=== PATIENT | female | born 1950 | race Caucasian/White ===

== ENCOUNTER 2018-05-25 20:02 | Emergency (ER) | payer OTHER, SELFPAY ==
--- NOTE | 2018-05-25 20:04 | ED_ITS ---
HPI - Extremity Injury (Upper) <CATRINA Fried - Last Filed: 05/25/18 22:17> General Chief Complaint: Extremity Injury, Upper Stated Complaint: RIGHT HAND FRACTURED OR SPRAIN Time Seen by Provider: 05/25/18 20:04 History of Present Illness HPI narrative: 67-year-old female here for complaint of pain into her right wrist. Patient states that she stumbled earlier today causing her to fall backwards on outstretched hand. She has pain into the radial aspect of the right wrist with some swelling and bruising. She denies any head injury she denies any loss of conscious. She denies any other injuries. She is ambulatory to the emergency room. Incident happened this afternoon. Patient also states she had some dysuria earlier today however that has resolved. She denies any flank pains no fevers no chills no abdominal pain. Related Data Allergies Allergy/AdvReac Type Severity Reaction Status Date / Time Penicillins Allergy Intermediate Rash Verified 05/25/18 20:39 codeine AdvReac Gastrointestinal Verified 05/25/18 20:39 Upset Sulfa (Sulfonamide AdvReac flush Verified 05/25/18 20:39 Antibiotics) Review of Systems <CATRINA Fried - Last Filed: 05/25/18 22:17> Constitutional Denies chills, Denies fever(s), Denies lethargy and Denies weakness Eyes Denies change in vision, Denies eye discharge, Denies irritation and Denies loss of vision ENT Ears, Nose, Mouth, and Throat: Denies change in voice, Denies neck pain and Denies sore throat Cardiovascular Denies chest pain, Denies irregular heart rhythm, Denies lightheadedness, Denies palpitations, Denies dyspnea, Denies dyspnea on exertion and Denies orthopnea Respiratory Denies cough, Denies dyspnea, Denies dyspnea on exertion and Denies wheezing Gastrointestinal Gastrointestinal: Denies abdominal pain, Denies change in bowel habits, Denies diarrhea, Denies nausea and Denies vomiting Genitourinary Denies hematuria, Reports dysuria, Denies flank pain, Denies urinary incontinence and Denies urinary urgency Musculoskeletal Denies neck pain Comments: Pain to right wrist Integumentary/Breasts Denies pruritus, Denies erythema, Denies rash and Denies wounds Neurologic Denies confusion, Denies loss of vision and Denies weakness Psychiatric Denies anxiety, Denies confusion, Denies depression, Denies homicidal ideation and Denies suicidal ideation Endocrine Denies palpitations Allergic/Immunologic Denies wheezing Exam <CATRINA Fried - Last Filed: 05/25/18 22:17> Initial Vital Signs Initial Vital Signs: Vital Signs Temperature 98.4 F 05/25/18 20:10 Pulse Rate 114 H 05/25/18 20:10 Respiratory Rate 18 05/25/18 20:10 Blood Pressure 172/78 H 05/25/18 20:10 Pulse Oximetry 95 05/25/18 20:10 Const General: cooperative and well developed Nutritional Appearance: well nourished Orientation: alert, awake, oriented x3 and not confused HENMT Mouth: oral mucosae normal and moist mucous membranes Throat: posterior oropharynx normal Eyes Conjunctivae: conjunctivae normal Sclera: sclerae normal Pupils: PERRL EOM: EOM intact bilaterally Chest Chest: normal inspection of the chest Resp Effort & Inspection: normal respiratory effort, able to speak in complete sentences, no respiratory distress and no use of accessory muscles Auscultation: clear to auscultation bilaterally, no rales, no rhonchi and no wheezes Skin General: no rashes or lesions noted, No jaundice and No petechiae Extrem Other: Swelling and ecchymosis to the right wrist over the radial aspect. No other deformities. Distal sensation is intact distal range of motion is intact. Distal cap refill less than 2 sec. <Morgan Donahue DO - Last Filed: 05/26/18 02:59> Initial Vital Signs Initial Vital Signs: Vital Signs Temperature 98.4 F 05/25/18 20:10 Pulse Rate 114 H 05/25/18 20:10 Respiratory Rate 18 05/25/18 20:10 Blood Pressure 172/78 H 05/25/18 20:10 Pulse Oximetry 95 05/25/18 20:10 Procedures <CATRINA Fried - Last Filed: 05/25/18 22:17> Orthopedic Splinting/Casting Injury #1: Side: right Upper Extremity Injury Location: wrist Upper Extremity Immobilizer: sugar tong splint Additional Comments: Patient was placed in a sugar-tong splint to the right wrist applied by nursing staff. Applied appropriately. Distal CMS is intact Course <CATRINA Fried - Last Filed: 05/25/18 22:17> Orders Ordered: ED Orders 05/25/18 20:09 XR wrist RT min 3V Stat Discontinued Medications Acetaminophen (Tylenol) 650 mg PO NOW ONE Stop: 05/25/18 20:51 Last Admin: 05/25/18 20:52 Dose: 650 mg Vital Signs - 8 hr 05/25/18 20:10 05/25/18 21:37 05/25/18 21:49 Temperature 98.4 F Pulse Rate 114 H 102 H 107 H Respiratory Rate 18 16 Blood Pressure 172/78 H 173/83 H Pulse Oximetry 95 98 96 <Morgan Donahue DO - Last Filed: 05/26/18 02:59> Orders Ordered: ED Orders 05/25/18 20:09 XR wrist RT min 3V Stat Discontinued Medications Acetaminophen (Tylenol) 650 mg PO NOW ONE Stop: 05/25/18 20:51 Last Admin: 05/25/18 20:52 Dose: 650 mg Vital Signs - 8 hr 05/25/18 20:10 05/25/18 21:37 05/25/18 21:49 Temperature 98.4 F Pulse Rate 114 H 102 H 107 H Respiratory Rate 18 16 Blood Pressure 172/78 H 173/83 H Pulse Oximetry 95 98 96 MDM - Extremity Injury (Upper) <CATRINA Fried - Last Filed: 05/25/18 22:17> Imaging Data Wrist : Radiologist's impression: PROCEDURE: XR WRIST RT MIN 3V INDICATIONS: Injury TECHNIQUE: 3 views of the wrist were acquired. COMPARISON: None. FINDINGS: Bones: Nondisplaced distal radial metaphyseal fracture is suspected. Trapezium is absent, possibly resected. No suspicious bony lesions. Degenerative joint disease at the first metacarpal phalangeal joint and multiple interphalangeal joints. There is osteopenia. Scaphoid view: Scaphoid appears intact. Soft tissues: No suspicious soft tissue calcifications. Soft tissue edema around the wrist. IMPRESSION: 1. Suspect nondisplaced distal radial metaphyseal fracture. 2. Trapezium is absent, presumably surgically resected. 3. Degenerative joint disease. 4. Osteopenia. Dictated by: Michelle Roman M.D. on 05/25/2018 at 20:48 Approved by: Michelle Roman M.D. on 05/25/2018 at 20:51 MDM Narrative Medical decision making narrative: X-ray the right wrist was obtained and shows possible distal radial fracture nondisplaced. She is placed in a sugar-tong splint for comfort and support. She is also placed in a sling. Over-the- counter Tylenol Motrin as needed for any discomfort. Ice and elevation help with any swelling. Follow up with Orthopedics call their number listed below to schedule appointment later this week. For any worsening symptoms return to the emergency room. Urinalysis was negative for UTI. Discharge Plan Departure Patient Disposition: Home, Self-Care Clinical Impression: Fracture of wrist Discharge Date/Time: 05/25/18 21:51 Interventions: ED Discharge Assessment Last Done: 05/25/18 21:49 Instructions: DI for Wrist Fracture Activity Restrictions/Additional Instructions: X-ray the right wrist was obtained and shows possible distal radial fracture nondisplaced. You have been placed in a sugar-tong splint for comfort and support and also placed in a sling use as directed. [id number] Tylenol Motrin as needed for any discomfort. Ice and elevation help with any swelling. Follow up with Orthopedics call their number listed below to schedule appointment later this week. For any worsening symptoms return to the emergency room. Urinalysis was negative for UTI. Referrals: Suma Gonzales MD [Physician] - <Morgan Donahue DO - Last Filed: 05/26/18 02:59> [facility] ED Attending Amanuel Attestation: I was immediately available in the department for consultation. Documentation has been reviewed. I agree with assessment and plan.
--- NOTE | 2018-05-25 20:09 | DI.RAD.S_ITS ---
PROCEDURE: XR WRIST RT MIN 3V INDICATIONS: Injury TECHNIQUE: 3 views of the wrist were acquired. COMPARISON: None. FINDINGS: Bones: Nondisplaced distal radial metaphyseal fracture is suspected. Trapezium is absent, possibly resected. No suspicious bony lesions. Degenerative joint disease at the first metacarpal phalangeal joint and multiple interphalangeal joints. There is osteopenia. Scaphoid view: Scaphoid appears intact. Soft tissues: No suspicious soft tissue calcifications. Soft tissue edema around the wrist. IMPRESSION: 1. Suspect nondisplaced distal radial metaphyseal fracture. 2. Trapezium is absent, presumably surgically resected. 3. Degenerative joint disease. 4. Osteopenia. Dictated by: Michelle Roman M.D. on 05/25/2018 at 20:48 Approved by: Michelle Roman M.D. on 05/25/2018 at 20:51
[2018-05-25 20:10] VITALS: BP 172/78; PULSE 114; RESP 18; TEMP 36.9; O2SAT 95
[2018-05-25] MEDS: ACETAMINOPHEN 325 MG TABLET 650 MG PO (20:52)
[2018-05-25 21:37] VITALS: PULSE 102; O2SAT 98
[2018-05-25 21:49] VITALS: BP 173/83; PULSE 107; RESP 16; O2SAT 96
== END 2018-05-25 21:51 | disposition home or self-care (01) ==
PROVIDERS: Emergency Provider Nurse Practitioner Family
DX: S62.101A Fracture of unspecified carpal bone, right wrist, initial encounter for closed fracture (principal); W01.0XXA Fall on same level from slipping, tripping and stumbling without subsequent striking against object, initial encounter
CPT/HCPCS: 29505; 73110; 81003; 99283; 99284

== ENCOUNTER → 2023-06-06 16:47 | Outpatient (CLI) | payer MEDICARE, SELFPAY | PROVIDERS: PCP Nurse Practitioner Family; Visit Provider Specialist | DX: R39.9 Unspecified symptoms and signs involving the genitourinary system (principal); N20.0 Calculus of kidney; F32.A Depression, unspecified; Z86.59 Personal history of other mental and behavioral disorders; Z87.442 Personal history of urinary calculi; Z86.39 Personal history of other endocrine, nutritional and metabolic disease; Z87.39 Personal history of other diseases of the musculoskeletal system and connective tissue; Z86.79 Personal history of other diseases of the circulatory system; Z98.890 Other specified postprocedural states; Z98.891 History of uterine scar from previous surgery; Z98.51 Tubal ligation status | CPT/HCPCS: 51798; 81002; 87077; 87086; 87186; 99215 ==

== ENCOUNTER 2023-06-22 07:31 | Day surgery (SDC) | payer MEDICARE, SELFPAY ==
[2023-06-14 11:55] VITALS: BMI 33.6
--- NOTE | 2023-06-22 | DI.RAD.S_ITS ---
PROCEDURE: XR KUB INDICATIONS: Left nephrolithiasis TECHNIQUE: One view of the abdomen acquired. COMPARISON: [facility], CT, CT IVP, 05/08/2023, 13:27. FINDINGS: Surgical changes and devices: None. Bowel: Bowel gas pattern is normal. Soft tissues: 2.2 x 1.5 cm calcification is seen projecting in the region of left kidney/UPJ. Additional smaller calcifications also seen projecting in mid to lower pole left kidney. Visualized solid organ contours appear normal in size. Bones: No suspicious bony lesions. IMPRESSION: Left-sided renal calculi as described above which were also seen on previous CT study. No gross free air. Dictated by: Brian Wooten M.D. on 06/22/2023 at 8:21 Approved by: Brian Wooten M.D. on 06/22/2023 at 8:23
[2023-06-22] MEDS: ACETAMINOPHEN IV 1,000 MG/100 ML VIAL 400 MG IV (08:01)
[2023-06-22 08:03] VITALS: BP 136/78; PULSE 90; RESP 16; TEMP 36.2; O2SAT 95; BMI 34.5
[2023-06-22] MEDS: LACTATED RINGERS 1,000 ML 21 ML IV (08:03)
[2023-06-22] MEDS: VANCOMYCIN 1,000 MG/200 ML PIGGYBACK 200 MG IV (08:24)
--- NOTE | 2023-06-22 08:33 | PM.PREOP ---
Pre-operative Note COVID-19 Criteria for continued procedure: Expected advancement of disease process, Continuing or worsening of significant or severe pain, Deterioration of the patient's condition or overall health, Delay expected to result in less-positive ultimate med/surg outcome and Non-surgical alternatives not available or appropriate per current SOC Interval Note History & Physical reviewed/Exam performed by Physician: Yes Changes to H&P: No
[2023-06-22] MEDS: GENTAMICIN 240 MG in SODIUM CHLORIDE 0.9% 100 ML 106 MG IV (09:10)
--- NOTE | 2023-06-22 09:48 | SUR.OPER ---
Addendum entered by Yanique Bedoya R.N. 06/22/23 09:49: For cystoscopy and stent placement, legs placed and secured on padded ESWL stirrups. For ESWL, patient in supine position, lower extremities on gel pads. Original Note: For cystoscopy and stent placement, patient placed in lithotomy on ESWL table, head on pillow, arms padded and tucked. For ESWL, patient placed on ESWL table, head on pillow, arms padded and tucked.
[2023-06-22 10:04] LABS: Appearance Urine UA CLEAR; Bilirubin Urine UA NEGATIVE (NEGATIVE); Color Urine UA YELLOW; Glucose Urine UA NEGATIVE (Negative); Ketones Urine UA NEGATIVE (NEGATIVE); Leukocyte Esterase Urine UA TRACE (NEGATIVE); Nitrite Urine UA NEGATIVE (Negative); Occult Blood Urine UA TRACE-INTACT (Negative); Protein Urine UA TRACE (Negative); Specific Gravity Urine UA 1.025 (1.000-1.035); Urobilinogen Urine UA 0.2 E.U./dL (0.2)
[2023-06-22 10:10] LABS: Bacteria Urine Moderate (10-30); Culture Indicated Urine Specimen Cultured; RBC Urine 0-1/HPF (0-5/HPF); Squamous Epithelial Cell Urine 1-5 /HPF (0-5/HPF); WBC Urine 10-30/HPF (0-5/HPF)
[2023-06-22 10:21] VITALS: BP 131/67; PULSE 76; RESP 19; TEMP 36.6; O2SAT 95
[2023-06-22 10:26] VITALS: BP 117/54; PULSE 77; RESP 20; O2SAT 97
[2023-06-22 10:31] VITALS: BP 127/65; PULSE 82; RESP 19; O2SAT 96
[2023-06-22] MEDS: FUROSEMIDE 40 MG/4 ML VIAL 20 MG IV (10:39)
[2023-06-22 10:45] VITALS: BP 135/75; PULSE 78; RESP 20; O2SAT 96
--- NOTE | 2023-06-22 10:57 | P.OP_ITS ---
Operative Date/Time/Diagnoses Date of procedure: 06/22/23 Time of procedure: 10:25 Pre-op diagnosis: 1. Left renal calculi 2. Left renal colic. Procedure & Clinicians Procedure: 1. Cystoscopy/left renal stone manipulation without removal. 2. Cystoscopy/placement left ureteral stent. 3. Left extracorporeal shockwave lithotripsy (maximal power level 8.0 times 3000 shocks). Same procedure as scheduled: Yes Indications: 1. Left renal calculi. 2. Left renal colic. Surgeon: Rajat Osorio Click Yes if Unassisted: Yes Anesthesia Type: General Operative Notes Findings: Index calculi are unchanged in position compared to preoperative imaging. Closure Type: not applicable Specimen(s): none sent Estimated Blood Loss (mL): 0 Procedure in detail: The patient was positioned in supine administered general anesthesia. She was then repositioned into semi-lithotomy and the lower abdomen, genitalia, and groin were then prepped and draped in sterile fashion. The 22 [place]ian panendoscope was then passed the lower urinary tract and a 0.35 hybrid guidewire was then advanced through the working channel of the scope and then into the left ureteral orifice and a direct visualization. It was then advanced proximally under both direct and fluoroscopic guidance. Next, an 8 Estonian by 22-32 cm multi-length firm stent was selected and advanced over the hybrid guidewire, again under direct and fluoroscopic guidance. It was positioned satisfactory within the left collecting system following some manipulation and repositioning of the proximal coil. At this time a obstructive efflux of urine was noted to emanate from around the stent at the orifice and through the stent lumen itself. A urine specimen was obtained and submitted to the laboratory for urinalysis and reflex culture. NO RETRIEVAL LINE WAS LEFT ATTACHED. The patient was then repositioned in supine in the index dominant left renal pelvic calculus was localized in the X, Y, and Z plane. Lithotripsy was then commenced at minimal power level for 200 shocks and then a 2 minute pause was conducted. Lithotripsy was then resumed and the power level was gradually increased to a maximum of 8.0. Stone and its fragments were Re localize as indicated throughout the case. A 3000 shocks there was encouraging evidence of excellent stone comminution. The patient was then awakened, transferred to [facility], then transported recovery in stable condition. Complications: none Post-operative Condition: stable Disposition: PACU Plan for aftercare: Discharge home.
[2023-06-22 11:02] VITALS: BP 132/78; PULSE 88; RESP 16; TEMP 36.2; O2SAT 98
== END 2023-06-22 11:07 | disposition home or self-care (01) ==
PROVIDERS: PCP Nurse Practitioner Family; Referring Provider Specialist; Visit Provider Specialist
PROC: (CPT 50590; principal; 2023-06-22 09:15)
PROC: (CPT 50590; 2023-06-22 09:15)
DX: N20.0 Calculus of kidney (principal)
CPT/HCPCS: 50590; 52332; 74018; 81001; 87086; J0131; J1940; J2405; J3010

== ENCOUNTER → 2023-07-12 13:26 | Outpatient (CLI) | payer MEDICARE, SELFPAY | PROVIDERS: PCP Nurse Practitioner Family; Visit Provider Specialist | DX: N20.0 Calculus of kidney (principal); R39.9 Unspecified symptoms and signs involving the genitourinary system; Z96.0 Presence of urogenital implants | CPT/HCPCS: 81002; 87086; 99215 ==

== ENCOUNTER → 2023-07-31 15:21 | Outpatient (CLI) | payer MEDICARE, SELFPAY | PROVIDERS: PCP Nurse Practitioner Family; Visit Provider Specialist | DX: R39.9 Unspecified symptoms and signs involving the genitourinary system (principal); N20.0 Calculus of kidney; N95.2 Postmenopausal atrophic vaginitis; Z87.440 Personal history of urinary (tract) infections; Z96.0 Presence of urogenital implants | CPT/HCPCS: 81002; 87086; 99214 ==

== ENCOUNTER 2023-08-03 07:59 | Day surgery (SDC) | payer MEDICARE, SELFPAY ==
[2023-08-01 13:05] VITALS: BMI 34.5
--- NOTE | 2023-08-03 07:50 | DI.RAD.S_ITS ---
PROCEDURE: XR KUB INDICATIONS: pre-op for surgery prior to ESWL TECHNIQUE: One view of the abdomen acquired. COMPARISON: [facility], CR, XR KUB, 06/22/2023, 7:46. [facility], CR, XR ABDOMEN 1 VIEW, 07/04/2023, 15:04. FINDINGS: Surgical changes and devices: Left ureterovesicular stent is present. Bowel: Bowel gas pattern is normal. Soft tissues: Calcification remains overlying the central portion of the pelvis unchanged. Calcification overlying the inferior left renal pole remains present although previously identified as a 1.1 cm focus and now multiple punctate calcifications. Visualized solid organ contours appear normal in size. Bones: No suspicious bony lesions. IMPRESSION: Previous calcification overlying the inferior left renal pole has appearance of multiple punctate calcifications as a post to a larger more confluent focus on prior exam. Dictated by: La Mayberry M.D. on 08/03/2023 at 8:54 Approved by: La Mayberry M.D. on 08/03/2023 at 8:55
--- NOTE | 2023-08-03 08:25 | P.OP.PRE_ITS ---
Pre-operative Note COVID-19 Criteria for continued procedure: Expected advancement of disease process, Possibility delay results in more complex future surgery or treatment, Increased loss of function, Deterioration of the patient's condition or overall health, Delay expected to result in less-positive ultimate med/surg outcome and Non- surgical alternatives not available or appropriate per current SOC Interval Note History & Physical reviewed/Exam performed by Physician: Yes Changes to H&P: No
[2023-08-03] MEDS: ACETAMINOPHEN 325 MG TABLET 650 MG PO (08:28)
[2023-08-03] MEDS: LACTATED RINGERS 1,000 ML 120 ML IV (08:28)
[2023-08-03 08:41] VITALS: BP 133/71; PULSE 81; RESP 16; TEMP 36.4; O2SAT 96; BMI 34.5
--- NOTE | 2023-08-03 09:12 | SUR.OPER ---
Supine on padded ESWL bed, head on pillow, arms padded and tucked <90 degrees abduction, legs uncrossed
[2023-08-03 09:47] VITALS: BP 126/62; PULSE 78; RESP 18; TEMP 36.1; O2SAT 96
[2023-08-03 09:51] VITALS: BP 131/68; PULSE 78; RESP 16; O2SAT 96
[2023-08-03 09:56] VITALS: BP 124/59; PULSE 75; RESP 14; O2SAT 98
--- NOTE | 2023-08-03 09:57 | P.OP_ITS ---
Operative Date/Time/Diagnoses Date of procedure: 08/03/23 Time of procedure: 09:40 Pre-op diagnosis: 1. Left nephrolithiasis 2. Retained left ureteral stent Post-op diagnosis: same Procedure & Clinicians Procedure: 1. Left extracorporeal see (maximal power level 7.0 x 2500 shocks). Same procedure as scheduled: Yes Indications: 1. Left nephrolithiasis 2. Retained left ureteral stent Surgeon: Rajat Osorio Click Yes if Unassisted: Yes Anesthesia Type: General Operative Notes Findings: Numerous calculi identified in the left renal pelvis and lower pole collecting system. Additional fragments seen in the vicinity of the left ureteropelvic junction adjacent to the stent. Closure Type: not applicable Specimen(s): none sent Estimated Blood Loss (mL): 0 Blood products transfused: none Procedure in detail: The patient was positioned supine was administered general anesthesia. The above-described fragment lying along the left ureteral stent was then localized in the X, Y, and Z plane. Lithotripsy was then commenced at minimal power level and then a 2 minute pause was conducted 200 shocks. An additional 700 shocks were applied to the stone with good radiographic evidence of comminution. The various fragments remaining in the left intrarenal collecting system were then localized with fluoroscopy as needed and were treated at maximal power level for an additional 1400 shocks. A total of 2500 shocks were conducted during the treatment. The patient was then awakened, transferred to [facility], and then transported recovery in stable condition. Complications: none Post-operative Condition: stable Disposition: PACU Plan for aftercare: Discharge home
[2023-08-03 10:01] VITALS: BP 130/61; PULSE 78; RESP 16; O2SAT 97
== END 2023-08-03 10:16 | disposition home or self-care (01) ==
PROVIDERS: PCP Nurse Practitioner Family; Referring Provider Specialist; Visit Provider Specialist
PROC: (CPT 50590; principal; 2023-08-03 09:15)
DX: N20.0 Calculus of kidney (principal)
CPT/HCPCS: 50590; 52332; 74018; J1100; J2405; J2704; J3010

== ENCOUNTER → 2024-02-14 08:08 | Outpatient (CLI) | payer MEDICARE, SELFPAY | PROVIDERS: PCP Nurse Practitioner Family; Visit Provider Specialist | DX: N95.2 Postmenopausal atrophic vaginitis (principal); R39.9 Unspecified symptoms and signs involving the genitourinary system; Z87.440 Personal history of urinary (tract) infections | CPT/HCPCS: 81002; 87077; 87086; 87186; 99215 ==